=== PATIENT | female | born 1965 | race Hispanic/Latino ===

== ENCOUNTER → 2022-06-05 | Outpatient (CLI) | payer MEDICAID ==
[~2022-06-05] MED LIST: GADOTERATE MEGLUMINE 10 MMOL/20 ML VIAL IV ONE
== END | disposition home or self-care (01) ==
LOC: RAH 12:53 → EDBD 13:00
PROVIDERS: ATTEND Family Medicine Sports Medicine
DX: N83.8 Other noninflammatory disorders of ovary, fallopian tube and broad ligament (principal); D25.1 Intramural leiomyoma of uterus
CPT/HCPCS: 72197; A9575